=== PATIENT | female | born 1945 ===

== ENCOUNTER 2018-06-06 11:06 | Outpatient (CLI) | payer OTHER | END 2018-06-06 11:07 | disposition home or self-care (01) | LOC: C.MAMMO 11:06 | DX: Z12.31 Encounter for screening mammogram for malignant neoplasm of breast (principal); Z13.820 Encounter for screening for osteoporosis; M81.0 Age-related osteoporosis without current pathological fracture; D33.3 Benign neoplasm of cranial nerves; R92.2 Inconclusive mammogram ==

== ENCOUNTER 2018-06-20 11:51 | Outpatient (CLI) | payer OTHER | END 2018-06-20 11:52 | disposition home or self-care (01) | LOC: C.MRIC 11:52 | DX: H93.3X9 Disorders of unspecified acoustic nerve (principal) ==

== ENCOUNTER 2018-09-12 10:52 | Outpatient (CLI) | payer OTHER | END 2018-09-12 10:53 | disposition home or self-care (01) | LOC: C.RADIC 10:52 | DX: M25.552 Pain in left hip (principal); M25.551 Pain in right hip ==